=== PATIENT | female | born 2000 | race Caucasian/White ===

== ENCOUNTER → 2021-05-12 09:36 | Outpatient (BNVA) | payer BC, MEDICAID, SELFPAY | PROVIDERS: Visit Provider Obstetrics & Gynecology | DX: N89.8 Other specified noninflammatory disorders of vagina; Z30.9 Encounter for contraceptive management, unspecified | CPT/HCPCS: 81025; 87481; 87512; 87798; 87799 ==

== ENCOUNTER → 2021-11-03 11:13 | Outpatient (BNVA) | payer MEDICAID, SELFPAY | PROVIDERS: Visit Provider Obstetrics & Gynecology | DX: R30.0 Dysuria (principal); R35.0 Frequency of micturition | CPT/HCPCS: 81000; 87086 ==

== ENCOUNTER → 2021-11-17 15:07 | Outpatient (BNVA) | payer MEDICAID, SELFPAY | PROVIDERS: Visit Provider Obstetrics & Gynecology | DX: R30.0 Dysuria (principal) | CPT/HCPCS: 81000 ==